=== PATIENT | male | born 1960 ===

== ENCOUNTER 2025-08-18 15:48 | Emergency (ER) | payer OTHER ==
[2025-08-18] MEDS ORDERED: Mineral Oil/Petrolatum Oint 100 GM OINT TOP PRN (16:10)
[2025-08-18] MEDS: Mineral Oil/White Petrolatum Crm 113 GM Jar TOP PRN (16:39)
== END 2025-08-18 16:45 | disposition home or self-care (01) ==
LOC: DL.ED 15:48
DX: L85.3 Xerosis cutis (principal)
CPT/HCPCS: 82947; 99283